=== PATIENT | male | born 1970 | race African-American/Black ===

== ENCOUNTER 2018-01-15 11:38 | Inpatient (IN) | payer MEDICAID, OTHER ==
[~2018-01-15] VITALS: Ht 167.6 cm; Wt 101.5 kg
[2018-01-15] MEDS ORDERED: ONDANSETRON HCL 4 MG/2 ML VIAL IV ONE (13:45)
[2018-01-15] MEDS ORDERED: MORPHINE SULFATE 4 MG/ML SYR/VIAL IV ONE (13:45)
[2018-01-15] MEDS ORDERED: NITROGLYCERIN 0.4 MG SL TAB SL ONE (13:45)
[2018-01-15] MEDS ORDERED: ASPirin 81 mg TAB PO ONE (13:45)
[2018-01-15 14:39] LABS: Basophils # (auto) 0.1 uL; Basophils % (auto) 1.1 % (0.0-2.0); Eosinophils # (auto) 0.7 uL; Eosinophils % (auto) 10.7 % (0.0-7.0); Hematocrit 42.7 % (41.0-53.0); Hemoglobin 14.3 g/dL (13.5-17.5); Lymphocytes # (auto) 2.8 uL; Lymphocytes % (auto) 45.1 % (10.0-50.0); Mean Corpuscular Hemoglobin 28.4 pg (28.0-32.0); Mean Corpuscular Hgb Conc. 33.4 g/dL (32.0-36.0); Monocytes # (auto) 0.3 uL; Neutrophils # (auto) 2.4 uL; Neutrophils % (auto) 38.1 % (37.0-80.0); Nucleated Red Blood Cells % 0.2 %; Platelet Count (auto) 269 10^3/uL (140-450); Red Blood Cells 5.03 10^6/uL (4.5-5.90); Red Cell Distribution Width 14.4 % (11.8-14.3); White Blood Cell 6.2 10^3/uL (4.4-10.8)
[2018-01-15 14:53] LABS: Alanine Aminotransferase 36 U/L (16-61); Albumin 3.6 g/dL (3.4-5.0); Alkaline Phosphatase 69 U/L (45-117); Anion Gap 8 (5-15); Aspartate Aminotransferase 26 U/L (15-37); BUN/Creatinine Ratio 9.2; Bilirubin, Total 0.3 mg/dL (0.2-1.0); Blood Urea Nitrogen 8 mg/dL (7-18); Calcium 8.5 mg/dL (8.5-10.1); Carbon Dioxide 23 mmol/L (21-32); Chloride 107 mmol/L (98-107); GFR African American 121 mL/min; GFR Non-African American 100 mL/min; Glucose 112 mg/dL (74-106); Potassium 3.8 mmol/L (3.5-5.1); Sodium 138 mmol/L (136-145); Total Protein 7.2 g/dL (6.4-8.2)
[2018-01-15] MEDS ORDERED: ACETAMINOPHEN 500 MG TAB PO PRN (15:15)
[2018-01-15] MEDS ORDERED: LACTULOSE 20Gm/30ML SOLN PO PRN (15:15)
[2018-01-15] MEDS ORDERED: DEXTROSE (50%) 50ML SYRG IV PRN (15:15)
[2018-01-15] MEDS ORDERED: PROMETHAZINE HCL 25 MG/ML 1ML IV PRN (15:15)
[2018-01-15] MEDS ORDERED: NITROGLYCERIN 0.4 MG SL TAB SL PRN (15:15)
[2018-01-15] MEDS ORDERED: TEMAZEPAM 15 MG CAP PO PRN (15:15)
[2018-01-15] MEDS ORDERED: LORazepam 0.5 MG TAB PO PRN (15:15)
[2018-01-15] MEDS ORDERED: MORPHINE SULFATE 4 MG/ML SYR/VIAL IV PRN ×2 (15:15)
[2018-01-15] MEDS ORDERED: PANTOPRAZOLE 40 MG TAB PO ONE (15:30)
[2018-01-15] MEDS: SODIUM CHLORIDE 0.9% 1,000 ML IV SCH (15:58)
[2018-01-15] MEDS ORDERED: cefTRIAXone 1GM/10ml IVPUSH 10 ML IV ONE (16:45)
[2018-01-15] MEDS: InsuLIN REG 1unit/0.01ml Soln (100units/ml) SC SCH ×2 (16:51→22:06)
[2018-01-15] MEDS: ACCU-CHEK COMFORT CURVE STRIP VI SCH ×2 (16:51→21:45)
[2018-01-15] MEDS ORDERED: LIDOCAINE 2%HCL (LOCAL ANESTH.) INJ 20ML MDV ONE (17:03)
[2018-01-15 17:05] LABS: Alcohol, Urine < 3.0 mg/dL (0-5); Amphetamine Screen, Urine NEGATIVE (NEGATIVE); Barbiturate Scree,Urine NEGATIVE (NEGATIVE); Benzodiazephine Screen, Urine NEGATIVE (NEGATIVE); Cannabinoid Screen, Urine POSITIVE (NEGATIVE); Cocaine Screen, Urine NEGATIVE (NEGATIVE); Opiate Scree,Urine POSITIVE (NEGATIVE); Phencyclidine Screen, Urine NEGATIVE (NEGATIVE)
[2018-01-15] MEDS ORDERED: IOHEXOL 300 MG/ML 100ML BOTTLE IJ ONE (17:41)
[2018-01-15] MEDS ORDERED: PANT1INJ3 PO (20:49)
[2018-01-15] MEDS ORDERED: ASPI-231 PO (20:49)
[2018-01-15] MEDS ORDERED: DIAZ10TA3 PO (20:49)
[2018-01-15] MEDS ORDERED: METO25TA5 PO (20:49)
[2018-01-15] MEDS ORDERED: PRAS10TA8 PO (20:49)
[2018-01-15] MEDS ORDERED: PERCOT PO (20:49)
[2018-01-15] MEDS ORDERED: LISI2.5T47 PO (20:49)
[2018-01-15] MEDS ORDERED: ATO40T PO (20:49)
[2018-01-15] MEDS ORDERED: GLIM2TAB33 PO (20:49)
[2018-01-15] MEDS: METOPROLOL TARTRATE 25 MG TAB PO SCH (21:48)
[2018-01-15 22:00] VITALS: BP 97/54
[2018-01-15] MEDS ORDERED: ATORVASTATIN 20 MG TAB PO SCH (22:00)
[2018-01-15] MEDS: CLINDAMYCIN 600MG IV 50 ML IV SCH (22:06)
[2018-01-15] MEDS: HYDROcodone-ACET 5/325MG TAB PO PRN (22:07)
[2018-01-16 05:00] VITALS: BP 93/60
[2018-01-16] MEDS: SODIUM CHLORIDE 0.9% 1,000 ML IV SCH ×2 (05:05→17:52)
[2018-01-16] MEDS: ACCU-CHEK COMFORT CURVE STRIP VI SCH ×3 (05:52→17:52)
[2018-01-16] MEDS: CLINDAMYCIN 600MG IV 50 ML IV SCH ×2 (05:57→14:34)
[2018-01-16] MEDS: InsuLIN REG 1unit/0.01ml Soln (100units/ml) SC SCH ×3 (06:01→17:00)
[2018-01-16 07:09] LABS: Cholesterol 223 mg/dL (< 200); HDL Cholesterol 27 mg/dL (40-59); Triglycerides 470 mg/dL (< 150)
[2018-01-16] MEDS: HYDROcodone-ACET 5/325MG TAB PO PRN ×2 (08:31→17:00)
[2018-01-16] MEDS ORDERED: cefTRIAXone 1GM/10ml IVPUSH 10 ML IV SCH (09:00)
[2018-01-16 09:10] VITALS: BP 107/68
[2018-01-16] MEDS: METOPROLOL TARTRATE 25 MG TAB PO SCH (09:21)
[2018-01-16] MEDS ORDERED: ENOXAPARIN SOD 40 MG/0.4 ML SYRINGE SC SCH (10:00)
[2018-01-16] MEDS ORDERED: ASPirin 81 mg TAB PO SCH (10:00)
[2018-01-16] MEDS ORDERED: PANTOPRAZOLE 40 MG TAB PO SCH (10:00)
[2018-01-16] MEDS ORDERED: NITROGLYCERIN 0.2MG/HR TOPICAL PATCH TD SCH (10:00)
[2018-01-16 13:00] VITALS: BP 130/96
[2018-01-16 17:06] VITALS: BP 101/80
[2018-01-16 22:00] VITALS: BP 116/67
== END 2018-01-16 21:37 | disposition left against medical advice (07) | DRG 198 ==
LOC: ER 11:38 → TELE 11:39 → TELE-EAST 19:47
PROVIDERS: ADMIT Internal Medicine; ATTEND Internal Medicine Pulmonary Disease
DX: I24.9 Acute ischemic heart disease, unspecified (principal); E11.65 Type 2 diabetes mellitus with hyperglycemia; I10 Essential (primary) hypertension; M94.0 Chondrocostal junction syndrome [Tietze]; E78.1 Pure hyperglyceridemia; L72.3 Sebaceous cyst; E78.5 Hyperlipidemia, unspecified; I25.10 Atherosclerotic heart disease of native coronary artery without angina pectoris; M51.36 Other intervertebral disc degeneration, lumbar region; Z53.21 Procedure and treatment not carried out due to patient leaving prior to being seen by health care provider; E66.9 Obesity, unspecified; M19.90 Unspecified osteoarthritis, unspecified site; M54.5 Low back pain; Z82.49 Family history of ischemic heart disease and other diseases of the circulatory system; Z98.61 Coronary angioplasty status; Z87.891 Personal history of nicotine dependence; Z68.36 Body mass index [BMI] 36.0-36.9, adult
CPT/HCPCS: 36415; 71045; 72129; 80053; 80061; 80307; 82550; 82962; 83036; 83880; 84443; 84484; 85025; 85379; 85652; 86141; 93005; 96361; 96374; 96375; J1815; J2405; J3490

== ENCOUNTER 2023-04-23 10:02 | Emergency (ER) | payer MEDICAID, OTHER ==
[~2023-04-23] VITALS: Ht 167.6 cm; Wt 81.8 kg
[~2023-04-23 10:02] MED LIST: ASPI1TAB20 PO; ATO40T PO; DIAZ10TA3 PO; GLIM2TAB33 PO; LISI2.5T47 PO; METO25TA5 PO; PANT1INJ3 PO; PERCOT PO; PRAS10TA8 PO
[2023-04-23] MEDS ORDERED: KETOROLAC TROMETH 30 MG/ML 1ML VIAL IV STA (11:19)
[2023-04-23 11:24] VITALS: BP 123/88
[2023-04-23] MEDS ORDERED: KETOROLAC TROMETH 60MG/2ML VIAL IM ONE (11:30)
== END 2023-04-23 12:01 | disposition home or self-care (01) ==
LOC: ER 10:02
DX: M54.59 Other low back pain (principal); G89.29 Other chronic pain; I25.10 Atherosclerotic heart disease of native coronary artery without angina pectoris; E11.9 Type 2 diabetes mellitus without complications; Z98.61 Coronary angioplasty status
CPT/HCPCS: 93005; 96372; 99283; J1885

== ENCOUNTER 2023-05-11 03:21 | Emergency (ER) | payer OTHER ==
[~2023-05-11] VITALS: Ht 167.6 cm; Wt 86.4 kg
[2023-05-11 07:36] VITALS: BP 149/102
[2023-05-11] MEDS ORDERED: KETOROLAC TROMETH 30 MG/ML 1ML VIAL IM ONE (08:30)
[2023-05-11] MEDS ORDERED: HYDROcodone-ACET 10/325MG TAB PO ONE (08:30)
[2023-05-11] MEDS ORDERED: LIDO5PAD8 EX (08:58)
[2023-05-11] MEDS ORDERED: ACET-1079 PO (08:58)
== END 2023-05-11 08:58 | disposition home or self-care (01) ==
LOC: ER 03:21
DX: M79.662 Pain in left lower leg (principal); E11.9 Type 2 diabetes mellitus without complications; Z79.899 Other long term (current) drug therapy; Z98.890 Other specified postprocedural states; Z88.6 Allergy status to analgesic agent
CPT/HCPCS: 72131; 96372; 99285; J1885

== ENCOUNTER 2023-05-12 01:35 | Emergency (ER) | payer OTHER ==
[~2023-05-12] VITALS: Ht 167.6 cm; Wt 86.0 kg
[~2023-05-12 01:35] MED LIST changes: +ACET-1079 PO; +LIDO5PAD8 EX
[2023-05-12] MEDS ORDERED: MORPHINE SULFATE INJ 2 MG/ml SYRG IM ONE (02:45)
[2023-05-12] MEDS ORDERED: KETOROLAC TROMETH 60MG/2ML VIAL IM ONE (02:45)
[2023-05-12 04:09] VITALS: BP 130/79
[2023-05-13] MEDS ORDERED: METH4PAK PO (07:57)
[2023-05-13] MEDS ORDERED: IBUP1TAB5 PO (07:57)
== END 2023-05-12 04:15 | disposition home or self-care (01) ==
LOC: ER 01:35
DX: G89.29 Other chronic pain (principal); M54.59 Other low back pain; E11.9 Type 2 diabetes mellitus without complications; Z79.899 Other long term (current) drug therapy; Z98.890 Other specified postprocedural states
CPT/HCPCS: 96372; 99284; J1885; J2270

== ENCOUNTER 2023-05-13 05:25 | Emergency (ER) | payer OTHER ==
[~2023-05-13] VITALS: Ht 167.6 cm; Wt 63.8 kg
[2023-05-13] MEDS ORDERED: predniSONE 20 MG TAB PO ONE (07:45)
[2023-05-13 07:56] VITALS: BP 139/95
[2023-05-13] MEDS ORDERED: METH4PAK PO (07:57)
[2023-05-13] MEDS ORDERED: IBUP1TAB5 PO (07:57)
[2023-05-13] MEDS ORDERED: DexAMETHasone SOD PHOS 10MG/1ML VIAL INJ IM ONE (08:00)
== END 2023-05-13 08:15 | disposition home or self-care (01) ==
LOC: ER 05:25
DX: M54.32 Sciatica, left side (principal); G89.29 Other chronic pain; M54.59 Other low back pain; E11.9 Type 2 diabetes mellitus without complications; Z79.899 Other long term (current) drug therapy; Z79.82 Long term (current) use of aspirin; Z98.890 Other specified postprocedural states
CPT/HCPCS: 96372; 99283; J1100